=== PATIENT | male | born 1940 | race Caucasian/White ===

== ENCOUNTER 2024-06-25 07:54 | Day surgery (SDC) | payer MEDICARE, BC ==
[~2024-06-25] VITALS: Ht 193 cm; Wt 97.3 kg
[~2024-06-25 07:54] MED LIST: ALLO100T PO; AMLO1TAB24 PO; ATOR40TA75 PO; ECOT81TA5 PO; METO1TAB87 PO; MIDAZOLAM INJ 2MG/2ML VIAL As Ordered ONE; PHENYLEPHRINE 10% OPHTH SOL 5ML OS PRN; RAMI10CA64 PO; VITA100065 PO; fentaNYL 100 MCG/2 ML INJECTION As Ordered ONE
[2024-06-25] MEDS: LIDOCAINE 3.5 % 1ML OPHTH TOPICAL GEL OU ONE (09:36)
[2024-06-25] MEDS: TROPICAMIDE 1% OPHTH SOLN 15ML OS SCH (09:36)
[2024-06-25] MEDS: ATROPINE SULFATE 1% OPHTH SOLN 2ML BTL OS SCH (09:36)
[2024-06-25] MEDS: OFLOXACIN 0.3 % (OCUFLOX) OPTH SOL 5ML OS ONE (09:36)
[2024-06-25] MEDS: PHENYLEPHRINE 2.5% OPHTH SOL 2ML OS SCH (09:36)
[2024-06-25] MEDS: CEFUROXIME 1MG/0.1ML INTRACAMERAL INJ As Ordered ONE (10:37)
[2024-06-25] MEDS: BSS IRRIG/VANCO(10MG)/TOBRA(5MG)/EPINEPH(1:1000-0.5CC)500ML BAG-ORONLY As Ordered ONE (10:37)
[2024-06-25] MEDS: LIDOCAINE 1% SDV 5ML VIAL As Ordered ONE (10:37)
[2024-06-25] MEDS: TRIAMCINOLONE ACETONIDE SUSP 40MG/ML 1ML VIAL As Ordered ONE (10:37)
[2024-06-25 10:45] VITALS: BP 170/88; TEMP 97.3; O2SAT 98
== END 2024-06-25 10:55 | disposition home or self-care (01) ==
LOC: M SDC 07:54
PROVIDERS: ATTEND Ophthalmology
DX: H25.12 Age-related nuclear cataract, left eye (principal); M10.9 Gout, unspecified; E78.5 Hyperlipidemia, unspecified; I10 Essential (primary) hypertension; I25.10 Atherosclerotic heart disease of native coronary artery without angina pectoris; G47.33 Obstructive sleep apnea (adult) (pediatric); Z79.82 Long term (current) use of aspirin; Z79.899 Other long term (current) drug therapy; Z88.0 Allergy status to penicillin
CPT/HCPCS: 66984; J0697; J2250; J3010; J3301; V2632

== ENCOUNTER 2024-07-09 08:56 | Day surgery (SDC) | payer MEDICARE, BC ==
[~2024-07-09] VITALS: Ht 193 cm; Wt 96.1 kg
[~2024-07-09 08:56] MED LIST changes: +CYAN500T14 PO; -MIDAZOLAM INJ 2MG/2ML VIAL As Ordered ONE; +OMEG10002 PO; +PHENYLEPHRINE 10% OPHTH SOL 5ML OD PRN; -PHENYLEPHRINE 10% OPHTH SOL 5ML OS PRN; +VITA100093 PO
[2024-07-09] MEDS: ATROPINE SULFATE 1% OPHTH SOLN 2ML BTL OD SCH (09:39)
[2024-07-09] MEDS: OFLOXACIN 0.3 % (OCUFLOX) OPTH SOL 5ML OD ONE (09:39)
[2024-07-09] MEDS: PHENYLEPHRINE 2.5% OPHTH SOL 2ML OD SCH (09:39)
[2024-07-09] MEDS: LIDOCAINE 1% SDV 5ML VIAL As Ordered ONE (09:39)
[2024-07-09] MEDS: LIDOCAINE 3.5 % 1ML OPHTH TOPICAL GEL OU ONE (09:39)
[2024-07-09] MEDS: TROPICAMIDE 1% OPHTH SOLN 15ML OD SCH (09:39)
[2024-07-09] MEDS: BSS IRRIG/VANCO(10MG)/TOBRA(5MG)/EPINEPH(1:1000-0.5CC)500ML BAG-ORONLY As Ordered ONE (09:39)
[2024-07-09] MEDS: CEFUROXIME 1MG/0.1ML INTRACAMERAL INJ As Ordered ONE (09:40)
[2024-07-09 09:50] VITALS: BP 162/87; TEMP 97.6; O2SAT 97
== END 2024-07-09 10:12 | disposition home or self-care (01) ==
LOC: M SDC 08:56 → EDUNIT# 12:45
PROVIDERS: ATTEND Ophthalmology
DX: H25.11 Age-related nuclear cataract, right eye (principal); I25.10 Atherosclerotic heart disease of native coronary artery without angina pectoris; I10 Essential (primary) hypertension; E78.00 Pure hypercholesterolemia, unspecified; G47.30 Sleep apnea, unspecified; M10.9 Gout, unspecified; Z79.899 Other long term (current) drug therapy; Z79.82 Long term (current) use of aspirin; Z85.51 Personal history of malignant neoplasm of bladder; Z95.1 Presence of aortocoronary bypass graft; Z90.49 Acquired absence of other specified parts of digestive tract; Z98.42 Cataract extraction status, left eye; Z88.0 Allergy status to penicillin
CPT/HCPCS: 66984; J0697; J3010; V2632